=== PATIENT | female | born 1950 | race Caucasian/White ===

== ENCOUNTER 2019-02-22 13:05 | Inpatient (IN) | payer MEDICARE, MEDICAID ==
[~2019-02-22] VITALS: Ht 167.6 cm; Wt 50.5 kg
--- NOTE | 2019-02-22 13:15 | NUR ---
pt BIB ambulance transfer from outlying facility for evaluation of brain tumor. per report pt went to the ER at [place] c/o for >3 days and unable to tget out of bed with exacerbation of chronic neck and back pain. a tumor was found on exam and pt has been transfered here for oncology evaluation. pt is thin and mucous membranes very dry. lips are cracked. pt has a scab to [facility] from a fall that she had at home a few days ago. pt is tearful and asking repeated questions. no family at bedside. pt agitated about "someone robbing her house".
--- NOTE | 2019-02-22 13:25 | NUR ---
MD has been to bedside for eval.
[2019-02-22] MEDS ORDERED: PLEASE ENTER HEIGHT AND WEIGHT MC SCH (13:30)
[2019-02-22] MEDS ORDERED: MORPHINE SULFATE 4 MG/ML, 1ML IVPush PRN (13:30)
[2019-02-22] MEDS ORDERED: SODIUM CHLORIDE FLUSH 10ML SYR IVF ONE (13:30)
[2019-02-22] MEDS ORDERED: ONDANSETRON 2MG/ML, 2ML IVPush ONE (13:30)
[2019-02-22] MEDS ORDERED: PLEASE ENTER ALLERGIES MC SCH (13:30)
[2019-02-22 13:35] LABS: MEAN CORPUSCULAR HEMOGLOBIN 32.6 pg (27.0-34.8); MEAN CORPUSCULAR HGB CONC 33.2 g/dL (32.4-35.8); MEAN CORPUSCULAR VOLUME 97.9 fL (80-100); MEAN PLATELET VOLUME 8.6 fL (7.4-10.4); PLATELET COUNT 443 x10^3/uL (130-400); RED BLOOD COUNT 4.12 x10^6/uL (3.82-5.3); RED CELL DISTRIBUTION WIDTH 17.4 % (9.6-15.2)
--- NOTE | 2019-02-22 13:40 | NUR ---
pt has gotten off of [facility] and is standing at the side of the bed screaming. pt is yelling "where is my phone?" but she is holding it in her hands. attempting to calm pt. pt returned to [facility]. pt tearful and yelling that "they are robbing me! you need to call the police!". pt medicated for pain and anxiety for MRI
[2019-02-22 13:43] LABS: PROTHROMBIN TIME 10.5 Seconds (9.6-11.5)
[2019-02-22] MEDS ORDERED: MORPHINE SULFATE 4 MG/ML, 1ML ONE (13:43)
[2019-02-22] MEDS ORDERED: ONDANSETRON 2MG/ML, 2ML ONE (13:43)
[2019-02-22] MEDS ORDERED: LORazepam 2 MG/ML, 1ML ONE (13:44)
[2019-02-22 13:45] LABS: ALANINE AMINOTRANSFERASE 11 U/L (12-78); ALBUMIN 3.3 g/dL (3.4-5.0); ANION GAP 8 mmol/L (5-15); CALCIUM 8.8 mg/dL (8.5-10.1); CHLORIDE 101 mmol/L (98-107); CREATININE 0.53 mg/dL (0.55-1.02)
[2019-02-22 13:47] LABS: ALKALINE PHOSPHATASE 69 U/L (45-117); BILIRUBIN,TOTAL 0.6 mg/dL (0.2-1.0); TOTAL PROTEIN 7.9 g/dL (6.4-8.2)
[2019-02-22] MEDS ORDERED: LORazepam 2 MG/ML, 1ML IVPush ONE (14:00)
[2019-02-22 14:17] LABS: BASOPHILS # (AUTO) 0.01 x10^3/uL (0-0.1); BASOPHILS % (AUTO) 0 % (0-1); EOSINOPHILS % (AUTO) 0 % (1-7); LYMPHOCYTES # (AUTO) 0.31 x10^3/uL (1-3.4); LYMPHOCYTES % (AUTO) 4 % (22-44); MD SCAN; MONOCYTES # (AUTO) 0.01 x10^3/uL (0.2-0.8); MONOCYTES % (AUTO) 0 % (2-9); NEUTROPHILS # (AUTO) 8.44 x10^3/uL (1.8-6.8); NEUTROPHILS % (AUTO) 96 % (42-75)
--- NOTE | 2019-02-22 14:20 | NUR ---
MD has been to bedside for eval
[2019-02-22] MEDS ORDERED: hydrALAzine 20 MG/ML, 1ML IVPush PRN (14:30)
[2019-02-22] MEDS ORDERED: ONDANSETRON 2MG/ML, 2ML IVPush PRN (14:30)
[2019-02-22] MEDS ORDERED: PROMETHAZINE 25 MG/ML, 1ML IM PRN (14:30)
--- NOTE | 2019-02-22 14:45 | NUR ---
report has been called to recieving RN for admit. [facility] technician contacted to take pt to MRI as room upstairs is not ready
--- NOTE | 2019-02-22 14:46 | NUR ---
pt to MRI via [facility]
--- NOTE | 2019-02-22 14:52 | NUR ---
pt to go to [facility] after MRI. belongings taken to floor by tech
[2019-02-22] MEDS ORDERED: DEXAMETHASONE 4 MG/ML, 1ML IVPush SCH (15:00)
[2019-02-22] MEDS ORDERED: GADOBUTROL 7.5 MMOL/7.5 ML PFS ONE (15:01)
--- NOTE | 2019-02-22 15:03 | NUR ---
pt still in MRI. report to Devendra BO
[2019-02-22] MEDS ORDERED: ALBUTEROL SULFATE 2.5 MG/3 ML NPPB PRN (16:00)
[2019-02-22] MEDS: POTASSIUM CHLORIDE 20 MEQ in LACTATED RINGERS 1,000 ML IV SCH (17:00)
[2019-02-22] MEDS: INSULIN LISPRO 100 UNITS/ML, PEN SQ-INSULIN SCH ×2 (17:46→20:31)
[2019-02-22] MEDS: KETOROLAC 30 MG/1 ML IV PRN (19:14)
[2019-02-22 20:03] VITALS: BP 98/64
[2019-02-22] MEDS: DEXAMETHASONE 4 MG/ML, 1ML IVPush SCH (20:29)
[2019-02-23 00:41] VITALS: BP 119/90
[2019-02-23] MEDS: DEXAMETHASONE 4 MG/ML, 1ML IVPush SCH ×4 (02:59→20:17)
[2019-02-23] MEDS: POTASSIUM CHLORIDE 20 MEQ in LACTATED RINGERS 1,000 ML IV SCH ×2 (02:59→14:36)
[2019-02-23 05:03] LABS: BASOPHILS # (AUTO) 0.02 x10^3/uL (0-0.1); BASOPHILS % (AUTO) 0 % (0-1); EOSINOPHILS % (AUTO) 0 % (1-7); LYMPHOCYTES # (AUTO) 0.68 x10^3/uL (1-3.4); LYMPHOCYTES % (AUTO) 11 % (22-44); MD NO; MEAN CORPUSCULAR HEMOGLOBIN 32.2 pg (27.0-34.8); MEAN CORPUSCULAR HGB CONC 32.8 g/dL (32.4-35.8); MEAN CORPUSCULAR VOLUME 98.2 fL (80-100); MEAN PLATELET VOLUME 8.7 fL (7.4-10.4); MONOCYTES # (AUTO) 0.22 x10^3/uL (0.2-0.8); MONOCYTES % (AUTO) 4 % (2-9); NEUTROPHILS # (AUTO) 5.18 x10^3/uL (1.8-6.8); NEUTROPHILS % (AUTO) 85 % (42-75); PLATELET COUNT 432 x10^3/uL (130-400); RED BLOOD COUNT 4.16 x10^6/uL (3.82-5.3); RED CELL DISTRIBUTION WIDTH 17.5 % (9.6-15.2)
[2019-02-23 05:17] LABS: ALBUMIN 2.9 g/dL (3.4-5.0); ANION GAP 6 mmol/L (5-15); CALCIUM 8.6 mg/dL (8.5-10.1); CHLORIDE 107 mmol/L (98-107)
[2019-02-23 05:20] LABS: CREATININE 0.47 mg/dL (0.55-1.02)
[2019-02-23 05:21] LABS: ALANINE AMINOTRANSFERASE 11 U/L (12-78); ALKALINE PHOSPHATASE 62 U/L (45-117); BILIRUBIN,TOTAL 0.4 mg/dL (0.2-1.0); TOTAL PROTEIN 6.9 g/dL (6.4-8.2)
[2019-02-23 06:54] VITALS: BP 129/73
[2019-02-23] MEDS: INSULIN LISPRO 100 UNITS/ML, PEN SQ-INSULIN SCH ×4 (07:00→20:58)
[2019-02-23] MEDS: MORPHINE SULFATE 4 MG/ML, 1ML IVPush PRN ×4 (09:14→19:40)
[2019-02-23] MEDS: KETOROLAC 30 MG/1 ML IV PRN (11:06)
[2019-02-23] MEDS ORDERED: LORazepam 0.5MG TABLET ONE (11:37)
[2019-02-23] MEDS: LEVETIRACETAM 500 MG in SODIUM CHLORIDE 0.9% 100 ML IV SCH ×2 (11:41→22:31)
[2019-02-23] MEDS: LORazepam 0.5MG TABLET PO PRN ×2 (11:41→17:36)
[2019-02-23 12:52] VITALS: BP 138/96
[2019-02-23] MEDS: BUTALB/APAP/CAFFEINE 50MG/325MG/40MG PO PRN (14:36)
[2019-02-23] MEDS ORDERED: HYDR4TAB PO (15:06)
[2019-02-23] MEDS ORDERED: OMEP20CA14 PO (15:06)
[2019-02-23] MEDS ORDERED: SERT25TA3 PO (15:06)
[2019-02-23] MEDS ORDERED: AMLO5TAB10 PO (15:06)
[2019-02-23] MEDS ORDERED: GABA-826 PO (15:06)
[2019-02-23] MEDS ORDERED: ALBU18HF INH (15:06)
[2019-02-23] MEDS ORDERED: TIOT18CA INH (15:06)
[2019-02-23] MEDS ORDERED: MELO15TA24 PO (15:06)
[2019-02-23] MEDS ORDERED: VARE1TAB21 PO (15:06)
[2019-02-23] MEDS ORDERED: SERT-177 PO (15:06)
[2019-02-23] MEDS ORDERED: CYCL-259 PO (15:06)
[2019-02-23] MEDS ORDERED: BUDE10.2 INH (15:06)
[2019-02-23] MEDS ORDERED: HYDROmorphone 4MG TABLET PO PRN (16:30)
[2019-02-23] MEDS ORDERED: HYDROmorphone 2MG TABLET ONE (16:36)
[2019-02-23] MEDS: OMEPRAZOLE 20 MG CAPSULE.DR PO SCH (20:17)
[2019-02-23] MEDS: CYCLOBENZAPRINE 10 MG TABLET PO SCH (20:17)
[2019-02-23] MEDS: GABAPENTIN 100 MG CAPSULE PO SCH (20:17)
[2019-02-23 20:18] VITALS: BP 139/85
[2019-02-23] MEDS: HYDROmorphone 2MG TABLET PO PRN (20:57)
[2019-02-23] MEDS ORDERED: VARENICLINE 1MG TABLET PO SCH (21:00)
[2019-02-23] MEDS ORDERED: AMLODIPINE 5 MG TABLET PO SCH (21:00)
[2019-02-23] MEDS: BUDESONIDE 0.5 MG/2 ML INHA NPPB SCH (21:00)
[2019-02-23 22:19] VITALS: BP 131/80
[2019-02-23] MEDS ORDERED: TEMAZEPAM 15 MG CAPSULE PO PRN (22:30)
[2019-02-24] MEDS: POTASSIUM CHLORIDE 20 MEQ in LACTATED RINGERS 1,000 ML IV SCH (00:45)
[2019-02-24] MEDS: MORPHINE SULFATE 4 MG/ML, 1ML IVPush PRN ×3 (00:50→19:24)
[2019-02-24] MEDS: DEXAMETHASONE 4 MG/ML, 1ML IVPush SCH ×4 (03:00→22:14)
[2019-02-24 03:30] VITALS: BP 134/84
[2019-02-24] MEDS: HYDROmorphone 2MG TABLET PO PRN ×2 (04:11→16:27)
[2019-02-24 04:24] LABS: BASOPHILS % (AUTO) 0 % (0-1); EOSINOPHILS % (AUTO) 0 % (1-7); LYMPHOCYTES # (AUTO) 0.56 x10^3/uL (1-3.4); LYMPHOCYTES % (AUTO) 6 % (22-44); MD NO; MEAN CORPUSCULAR HEMOGLOBIN 31.1 pg (27.0-34.8); MEAN CORPUSCULAR HGB CONC 32.2 g/dL (32.4-35.8); MEAN CORPUSCULAR VOLUME 96.7 fL (80-100); MEAN PLATELET VOLUME 8.4 fL (7.4-10.4); MONOCYTES # (AUTO) 0.33 x10^3/uL (0.2-0.8); MONOCYTES % (AUTO) 4 % (2-9); NEUTROPHILS # (AUTO) 8.37 x10^3/uL (1.8-6.8); NEUTROPHILS % (AUTO) 90 % (42-75); PLATELET COUNT 485 x10^3/uL (130-400); RED BLOOD COUNT 4.31 x10^6/uL (3.82-5.3); RED CELL DISTRIBUTION WIDTH 17.5 % (9.6-15.2)
[2019-02-24 04:30] LABS: ALANINE AMINOTRANSFERASE 13 U/L (12-78); ALBUMIN 2.9 g/dL (3.4-5.0); ANION GAP 5 mmol/L (5-15); CALCIUM 8.8 mg/dL (8.5-10.1); CHLORIDE 105 mmol/L (98-107); CREATININE 0.51 mg/dL (0.55-1.02)
[2019-02-24 04:33] LABS: ALKALINE PHOSPHATASE 60 U/L (45-117); BILIRUBIN,TOTAL 0.3 mg/dL (0.2-1.0); TOTAL PROTEIN 6.9 g/dL (6.4-8.2)
[2019-02-24 06:45] VITALS: BP 107/54
[2019-02-24] MEDS ORDERED: TRAZODONE 50MG TABLET PO PRN (07:30)
[2019-02-24] MEDS ORDERED: TEMPLATE NON-FORMULARY MED. (Budesonide/Formoterol Fumarate (Symbicort 160-4.5 Mcg Inhaler INH SCH (09:00)
[2019-02-24] MEDS ORDERED: ALBUTEROL SULFATE 2.5 MG/3 ML NPPB PRN (09:00)
[2019-02-24] MEDS ORDERED: AMLODIPINE 5 MG TABLET PO SCH (09:00)
[2019-02-24] MEDS ORDERED: MELOXICAM 15 MG TABLET PO SCH (09:00)
[2019-02-24] MEDS: INSULIN LISPRO 100 UNITS/ML, PEN SQ-INSULIN SCH ×4 (09:17→22:43)
[2019-02-24] MEDS: CYCLOBENZAPRINE 10 MG TABLET PO SCH ×2 (09:18→22:14)
[2019-02-24] MEDS: OMEPRAZOLE 20 MG CAPSULE.DR PO SCH ×2 (09:18→22:14)
[2019-02-24] MEDS: GABAPENTIN 100 MG CAPSULE PO SCH ×3 (09:19→22:14)
[2019-02-24] MEDS: SERTRALINE 50MG TABLET PO SCH (09:19)
[2019-02-24] MEDS: BUDESONIDE 0.5 MG/2 ML INHA NPPB SCH ×2 (10:00→20:23)
[2019-02-24] MEDS: IPRATROPIUM 0.5 MG/2.5 ML INHA NPPB SCH ×3 (10:00→20:22)
[2019-02-24] MEDS: LEVETIRACETAM 500 MG in SODIUM CHLORIDE 0.9% 100 ML IV SCH (11:59)
[2019-02-24] MEDS: LORazepam 0.5MG TABLET PO PRN (12:29)
[2019-02-24 14:28] VITALS: BP 138/88
[2019-02-24] MEDS: LORazepam 1MG TABLET PO PRN ×2 (16:48→22:42)
[2019-02-24] MEDS: BUTALB/APAP/CAFFEINE 50MG/325MG/40MG PO PRN (17:35)
[2019-02-24 20:03] VITALS: BP 150/80
[2019-02-25] MEDS: LEVETIRACETAM 500 MG in SODIUM CHLORIDE 0.9% 100 ML IV SCH ×3 (01:29→23:27)
[2019-02-25 01:56] VITALS: BP 150/90
[2019-02-25] MEDS: IPRATROPIUM 0.5 MG/2.5 ML INHA NPPB SCH ×3 (02:30→21:00)
[2019-02-25] MEDS: DEXAMETHASONE 4 MG/ML, 1ML IVPush SCH ×4 (03:52→20:40)
[2019-02-25 06:37] VITALS: BP 139/77
[2019-02-25] MEDS: INSULIN LISPRO 100 UNITS/ML, PEN SQ-INSULIN SCH ×4 (08:00→22:51)
[2019-02-25] MEDS: BUDESONIDE 0.5 MG/2 ML INHA NPPB SCH ×2 (10:00→21:00)
[2019-02-25] MEDS ORDERED: LIDOCAINE-MPF 1%, 5ML ONE (12:03)
[2019-02-25] MEDS ORDERED: FENTANYL PF 100 MCG/2ML ONE ×2 (12:30)
[2019-02-25] MEDS ORDERED: NALOXONE 1 MG/ML, 2ML ONE (12:31)
[2019-02-25] MEDS ORDERED: MIDAZOLAM 1 MG/ML, 5ML ONE (12:31)
[2019-02-25] MEDS ORDERED: FLUMAZENIL 0.1 MG/1 ML, 5ML ONE (12:31)
[2019-02-25 12:40] VITALS: BP 147/89
[2019-02-25] MEDS: MORPHINE SULFATE 4 MG/ML, 1ML IVPush PRN ×3 (14:09→23:17)
[2019-02-25 14:45] LABS: ANION GAP 6 mmol/L (5-15); CALCIUM 8.8 mg/dL (8.5-10.1); CHLORIDE 103 mmol/L (98-107)
[2019-02-25 14:47] LABS: CREATININE 0.48 mg/dL (0.55-1.02)
[2019-02-25] MEDS: SERTRALINE 50MG TABLET PO SCH (15:58)
[2019-02-25] MEDS: AMLODIPINE 5 MG TABLET PO SCH ×2 (15:59→20:11)
[2019-02-25] MEDS: HYDROmorphone 2MG TABLET PO PRN ×2 (15:59→23:17)
[2019-02-25] MEDS: CYCLOBENZAPRINE 10 MG TABLET PO SCH ×2 (15:59→20:11)
[2019-02-25] MEDS: GABAPENTIN 100 MG CAPSULE PO SCH ×3 (16:00→20:11)
[2019-02-25] MEDS: OMEPRAZOLE 20 MG CAPSULE.DR PO SCH ×2 (16:00→20:11)
[2019-02-25 20:05] VITALS: BP 134/85
[2019-02-25] MEDS: BUTALB/APAP/CAFFEINE 50MG/325MG/40MG PO PRN (20:40)
[2019-02-25] MEDS: LORazepam 1MG TABLET PO PRN (20:40)
[2019-02-26] MEDS: IPRATROPIUM 0.5 MG/2.5 ML INHA NPPB SCH ×4 (02:30→20:40)
[2019-02-26] MEDS: DEXAMETHASONE 4 MG/ML, 1ML IVPush SCH ×3 (03:28→16:54)
[2019-02-26 03:57] VITALS: BP 124/82
[2019-02-26] MEDS: INSULIN LISPRO 100 UNITS/ML, PEN SQ-INSULIN SCH ×3 (07:00→18:16)
[2019-02-26] MEDS: BUDESONIDE 0.5 MG/2 ML INHA NPPB SCH ×2 (07:14→20:40)
[2019-02-26 07:55] VITALS: BP 142/90
[2019-02-26] MEDS: MORPHINE SULFATE 4 MG/ML, 1ML IVPush PRN ×3 (11:20→19:54)
[2019-02-26] MEDS: CYCLOBENZAPRINE 10 MG TABLET PO SCH ×2 (11:27→19:37)
[2019-02-26] MEDS: GABAPENTIN 100 MG CAPSULE PO SCH ×2 (11:27→16:54)
[2019-02-26] MEDS: OMEPRAZOLE 20 MG CAPSULE.DR PO SCH ×2 (11:27→19:37)
[2019-02-26] MEDS: AMLODIPINE 5 MG TABLET PO SCH ×2 (11:27→19:37)
[2019-02-26] MEDS: SERTRALINE 50MG TABLET PO SCH (11:27)
[2019-02-26] MEDS: LEVETIRACETAM 500 MG in SODIUM CHLORIDE 0.9% 100 ML IV SCH (11:28)
[2019-02-26 12:34] VITALS: BP 138/84
[2019-02-26] MEDS: BUTALB/APAP/CAFFEINE 50MG/325MG/40MG PO PRN ×2 (13:08→18:15)
[2019-02-26 18:36] VITALS: BP 146/84
[2019-02-26] MEDS: DOCUSATE 100 MG CAPSULE PO SCH ×2 (18:54→19:37)
[2019-02-26] MEDS: LORazepam 1MG TABLET PO PRN (18:58)
[2019-02-26] MEDS: HYDROmorphone 2MG TABLET PO PRN (19:37)
[2019-02-27 00:13] VITALS: BP 147/92
[2019-02-27] MEDS: LEVETIRACETAM 500 MG in SODIUM CHLORIDE 0.9% 100 ML IV SCH ×3 (00:14→23:00)
[2019-02-27] MEDS: DEXAMETHASONE 4 MG/ML, 1ML IVPush SCH ×4 (00:14→17:31)
[2019-02-27] MEDS: GABAPENTIN 100 MG CAPSULE PO SCH ×4 (00:14→21:34)
[2019-02-27] MEDS: MORPHINE SULFATE 4 MG/ML, 1ML IVPush PRN ×4 (00:14→19:33)
[2019-02-27] MEDS: INSULIN LISPRO 100 UNITS/ML, PEN SQ-INSULIN SCH ×5 (00:36→21:00)
[2019-02-27] MEDS: IPRATROPIUM 0.5 MG/2.5 ML INHA NPPB SCH ×4 (02:54→22:12)
[2019-02-27] MEDS: BUDESONIDE 0.5 MG/2 ML INHA NPPB SCH ×2 (07:35→22:12)
[2019-02-27 07:40] VITALS: BP 121/82
[2019-02-27] MEDS: MAGNESIUM HYDROXIDE 8%, 30ML UDC PO PRN (09:57)
[2019-02-27] MEDS: CYCLOBENZAPRINE 10 MG TABLET PO SCH ×2 (09:58→21:35)
[2019-02-27] MEDS: SERTRALINE 50MG TABLET PO SCH (09:58)
[2019-02-27] MEDS: DOCUSATE 100 MG CAPSULE PO SCH ×2 (09:58→21:34)
[2019-02-27] MEDS: AMLODIPINE 5 MG TABLET PO SCH ×2 (09:58→21:34)
[2019-02-27] MEDS: OMEPRAZOLE 20 MG CAPSULE.DR PO SCH ×2 (09:58→21:34)
[2019-02-27] MEDS ORDERED: MAGNESIUM CITRATE 300ML ORAL SOL PO PRN (10:30)
[2019-02-27] MEDS: HEPARIN 5,000 UNITS/ML, 1ML SQ SCH ×2 (11:18→17:31)
[2019-02-27] MEDS ORDERED: ALBUTEROL/IPRATROPIUM 2.5MG/0.5MG, 3 ML ONE (12:24)
[2019-02-27 13:15] VITALS: BP 131/84
[2019-02-27] MEDS: HYDROmorphone 2MG TABLET PO PRN ×2 (17:32→21:39)
[2019-02-27 19:20] VITALS: BP 144/88
[2019-02-27] MEDS: LORazepam 1MG TABLET PO PRN (21:34)
[2019-02-28] MEDS: DEXAMETHASONE 4 MG/ML, 1ML IVPush SCH ×5 (00:32→23:55)
[2019-02-28] MEDS: MORPHINE SULFATE 4 MG/ML, 1ML IVPush PRN ×5 (01:28→20:13)
[2019-02-28] MEDS: IPRATROPIUM 0.5 MG/2.5 ML INHA NPPB SCH ×4 (02:44→18:57)
[2019-02-28] MEDS: HEPARIN 5,000 UNITS/ML, 1ML SQ SCH ×2 (03:12→10:30)
[2019-02-28 03:59] VITALS: BP 148/86
[2019-02-28] MEDS: HYDROmorphone 2MG TABLET PO PRN ×2 (04:40→13:04)
[2019-02-28] MEDS: INSULIN LISPRO 100 UNITS/ML, PEN SQ-INSULIN SCH ×4 (07:00→21:44)
[2019-02-28] MEDS: BUDESONIDE 0.5 MG/2 ML INHA NPPB SCH ×2 (08:10→18:57)
[2019-02-28] MEDS: CYCLOBENZAPRINE 10 MG TABLET PO SCH ×2 (09:03→21:00)
[2019-02-28] MEDS: OMEPRAZOLE 20 MG CAPSULE.DR PO SCH ×2 (09:03→21:00)
[2019-02-28] MEDS: DOCUSATE 100 MG CAPSULE PO SCH ×2 (09:03→21:00)
[2019-02-28] MEDS: GABAPENTIN 100 MG CAPSULE PO SCH ×3 (09:03→21:00)
[2019-02-28] MEDS: AMLODIPINE 5 MG TABLET PO SCH ×2 (09:03→21:00)
[2019-02-28] MEDS: SERTRALINE 50MG TABLET PO SCH (09:03)
[2019-02-28] MEDS: BUTALB/APAP/CAFFEINE 50MG/325MG/40MG PO PRN ×2 (10:09→16:07)
[2019-02-28] MEDS: MAGNESIUM HYDROXIDE 8%, 30ML UDC PO PRN (10:09)
[2019-02-28 10:20] VITALS: BP 135/90
[2019-02-28] MEDS: LEVETIRACETAM 500 MG in SODIUM CHLORIDE 0.9% 100 ML IV SCH ×2 (11:25→23:27)
[2019-02-28 13:52] VITALS: BP 149/93
[2019-02-28] MEDS ORDERED: HYDROXYZINE PAMOATE 50MG CAP PO PRN (17:30)
[2019-02-28] MEDS ORDERED: LORazepam 0.5MG TABLET PO PRN (17:30)
[2019-02-28 21:30] VITALS: BP 179/93
[2019-02-28 21:58] VITALS: BP 183/93
[2019-02-28] MEDS ORDERED: ONDANSETRON 2MG/ML, 2ML IVPush PRN (22:31)
[2019-02-28] MEDS: LORazepam 2 MG/ML, 1ML IVPush PRN (23:27)
[2019-03-01] VITALS (12 sets, daily range): BP systolic 142–200; BP diastolic 85–106
[2019-03-01] MEDS: MORPHINE SULFATE 4 MG/ML, 1ML IVPush PRN ×3 (00:06→18:05)
[2019-03-01] MEDS: LABETALOL 5MG/ML, 20ML IVPush PRN ×3 (00:16→17:15)
[2019-03-01] MEDS: hydrALAzine 20 MG/ML, 1ML IV PRN ×3 (00:56→18:15)
[2019-03-01] MEDS: AMLODIPINE 5 MG TABLET PO SCH ×4 (00:59→21:00)
[2019-03-01] MEDS ORDERED: ENALAPRILAT 1.25 MG/ML, 2ML IV ONE (02:00)
[2019-03-01] MEDS: IPRATROPIUM 0.5 MG/2.5 ML INHA NPPB SCH ×3 (02:41→14:35)
[2019-03-01] MEDS: HYDROmorphone 2MG TABLET PO PRN (02:50)
[2019-03-01] MEDS: DEXAMETHASONE 4 MG/ML, 1ML IVPush SCH ×2 (05:55→12:12)
[2019-03-01] MEDS: BUDESONIDE 0.5 MG/2 ML INHA NPPB SCH ×2 (06:27→22:10)
[2019-03-01] MEDS: METOPROLOL TARTRATE 50 MG TABLET PO SCH ×3 (07:30→18:00)
[2019-03-01] MEDS: INSULIN LISPRO 100 UNITS/ML, PEN SQ-INSULIN SCH ×4 (08:33→21:00)
[2019-03-01] MEDS: CYCLOBENZAPRINE 10 MG TABLET PO SCH ×3 (08:55→21:00)
[2019-03-01] MEDS: HYDROCHLOROTHIAZIDE 25 MG TABLET PO SCH ×2 (08:55→09:00)
[2019-03-01] MEDS: OMEPRAZOLE 20 MG CAPSULE.DR PO SCH ×3 (08:55→21:00)
[2019-03-01] MEDS: ESCITALOPRAM 10MG TABLET PO SCH ×2 (08:55→09:00)
[2019-03-01] MEDS: DOCUSATE 100 MG CAPSULE PO SCH ×3 (08:55→21:00)
[2019-03-01] MEDS: GABAPENTIN 100 MG CAPSULE PO SCH ×4 (08:56→21:00)
[2019-03-01] MEDS: LORazepam 2 MG/ML, 1ML IVPush PRN (09:14)
[2019-03-01] MEDS ORDERED: ENALAPRILAT 1.25 MG/ML, 2ML IV PRN (11:00)
[2019-03-01] MEDS ORDERED: LABETALOL 5MG/ML, 20ML IVPush ONE (11:00)
[2019-03-01] MEDS: LEVETIRACETAM 500 MG in SODIUM CHLORIDE 0.9% 100 ML IV SCH ×2 (12:13→23:58)
[2019-03-01 12:54] LABS: MEAN CORPUSCULAR HEMOGLOBIN 31.9 pg (27.0-34.8); MEAN CORPUSCULAR VOLUME 96.7 fL (80-100); MEAN PLATELET VOLUME 8.4 fL (7.4-10.4); PLATELET COUNT 513 x10^3/uL (130-400); RED BLOOD COUNT 5.11 x10^6/uL (3.82-5.3); RED CELL DISTRIBUTION WIDTH 17.6 % (9.6-15.2)
[2019-03-01 13:03] LABS: ALANINE AMINOTRANSFERASE 18 U/L (12-78); ALBUMIN 3.2 g/dL (3.4-5.0); ANION GAP 11 mmol/L (5-15); CALCIUM 9.1 mg/dL (8.5-10.1); CREATININE 0.49 mg/dL (0.55-1.02)
[2019-03-01 13:05] LABS: ALKALINE PHOSPHATASE 66 U/L (45-117); BILIRUBIN,TOTAL 0.5 mg/dL (0.2-1.0); TOTAL PROTEIN 8.2 g/dL (6.4-8.2)
[2019-03-01 13:16] LABS: MD YES
[2019-03-01 13:17] LABS: CHLORIDE 90 mmol/L (98-107)
[2019-03-01 13:19] LABS: <PLATELET ESTIMATE> INCREASED; ANISOCYTOSIS 1+; LARGE PLATELETS 1+; LYMPH#(MANUAL) 0.53 x10^3/uL (1-3.4); LYMPHS% (MANUAL) 2 % (22-44); MONOS#(MANUAL) 2.39 x10^3/uL (0.3-2.7); MONOS% (MANUAL) 9 % (2-9); SEG#(MANUAL) 23.59 x10^3/uL (1.8-6.8); SEGS% (MANUAL) 89 % (42-75)
[2019-03-01] MEDS ORDERED: OMNIPAQUE 350 MG/ML, 75ML BOTTLE ONE (14:12)
[2019-03-01] MEDS: SODIUM CHLORIDE 0.9% 1,000 ML IV SCH ×3 (14:29→23:59)
[2019-03-01] MEDS ORDERED: DEXAMETHASONE 1 MG TABLET PO SCH (16:00)
[2019-03-01] MEDS ORDERED: DEXAMETHASONE 4 MG/ML, 1ML IVPush SCH (18:00)
[2019-03-01 18:50] LABS: ANION GAP 12 mmol/L (5-15); CALCIUM 9.4 mg/dL (8.5-10.1); CHLORIDE 92 mmol/L (98-107); CREATININE 0.57 mg/dL (0.55-1.02)
[2019-03-01] MEDS ORDERED: NALOXONE 0.4 MG/ML, 1ML IVPush ONE (19:00)
[2019-03-01] MEDS ORDERED: MANNITOL PMX 20% 500 ML ONE (19:53)
[2019-03-01] MEDS ORDERED: FUROSEMIDE 20 MG/2 ML ONE (19:53)
[2019-03-01] MEDS ORDERED: CEFUROXIME 1.5 GM ONE (19:56)
[2019-03-01] MEDS ORDERED: FENTANYL PF 250 MCG/5ML ONE (19:58)
[2019-03-01] MEDS ORDERED: ROCURONIUM 10MG/ML,5ML ONE (20:10)
[2019-03-01] MEDS ORDERED: LIDOCAINE-MPF 2% ,5ML ONE (20:10)
[2019-03-01] MEDS ORDERED: PROPOFOL 10 MG/ML, 20ML ONE (20:10)
[2019-03-01] MEDS ORDERED: PHENYLEPHRINE 10 MG/ML ONE (20:10)
[2019-03-01] MEDS ORDERED: BUPIVACAINE/PF-EPI 0.5% 1:200K ONE (20:30)
[2019-03-01] MEDS ORDERED: BACITRACIN 50,000 UNIT ONE (20:31)
[2019-03-01] MEDS ORDERED: VANCOMYCIN 1,000 MG ONE (21:25)
[2019-03-01] MEDS: ALBUTEROL/IPRATROPIUM 2.5MG/0.5MG, 3 ML INLINE SCH (22:10)
[2019-03-01] MEDS ORDERED: VANCOMYCIN PER PHARMACY MC PRN ×2 (22:30)
[2019-03-01] MEDS ORDERED: PHARMACOKINETIC CONSULTATION MC ONE ×2 (22:30→23:30)
[2019-03-01] MEDS ORDERED: CEFTRIAXONE PMX 1GM/50ML 50 ML IV SCH (22:30)
[2019-03-01] MEDS ORDERED: PHARMACOKINETIC MONITORING MC PRN ×2 (22:30→23:30)
[2019-03-01] MEDS ORDERED: METRONIDAZOLE PMX 500MG/100ML 100 ML IV SCH (22:30)
[2019-03-01] MEDS ORDERED: FENTANYL PF 100 MCG/2ML ONE (22:55)
[2019-03-01] MEDS ORDERED: MIDAZOLAM 1 MG/ML, 5ML ONE (22:55)
[2019-03-01] MEDS ORDERED: PROPOFOL 100 ML IV ONE (22:55)
[2019-03-01] MEDS ORDERED: VANCOMYCIN 1,300 MG in SODIUM CHLORIDE 0.9% 250 ML IV ONE (23:00)
[2019-03-01] MEDS ORDERED: FENTANYL PF 100 MCG/2ML IVPush PRN ×2 (23:00→23:30)
[2019-03-01] MEDS ORDERED: VANCOMYCIN PMX 1GM/200ML 200 ML IV SCH (23:00)
[2019-03-01] MEDS ORDERED: MIDAZOLAM 1 MG/ML, 5ML IVPush ONE (23:00)
[2019-03-01] MEDS: CEFTRIAXONE PMX 2GM/50ML 50 ML IVPB SCH (23:12)
[2019-03-01] MEDS ORDERED: GLUCAGON 1 MG IM PRN (23:30)
[2019-03-01] MEDS ORDERED: DEXTROSE 50%, 50ML SYRINGE IVPush PRN (23:30)
[2019-03-01] MEDS ORDERED: DEXTROSE 4 GM TAB.CHEW PO PRN (23:30)
[2019-03-01] MEDS ORDERED: LACTULOSE 20 GM/30 ML UDC NG PRN (23:30)
[2019-03-01] MEDS ORDERED: LIDOCAINE-MPF 1%, 2ML ENDO PRN (23:30)
[2019-03-01] MEDS ORDERED: PHARMACY MAY ADJ FOR RENAL FX MC SCH (23:30)
[2019-03-01] MEDS ORDERED: BISACODYL 10 MG SUPP PR PRN (23:30)
[2019-03-01] MEDS ORDERED: SENNA/DOCUSATE TABLET NG PRN (23:30)
[2019-03-01 23:35] LABS: ANION GAP 11 mmol/L (5-15); CALCIUM 9.2 mg/dL (8.5-10.1); CHLORIDE 94 mmol/L (98-107); CREATININE 0.62 mg/dL (0.55-1.02)
[2019-03-01 23:57] LABS: CULTURE INDICATED? NO; MICROSCOPIC AUTO
[2019-03-02 00:01] LABS: MEAN CORPUSCULAR HEMOGLOBIN 30.9 pg (27.0-34.8); MEAN CORPUSCULAR HGB CONC 32.2 g/dL (32.4-35.8); MEAN CORPUSCULAR VOLUME 95.9 fL (80-100); MEAN PLATELET VOLUME 8.4 fL (7.4-10.4); PLATELET COUNT 469 x10^3/uL (130-400); RED BLOOD COUNT 5.06 x10^6/uL (3.82-5.3)
[2019-03-02] MEDS: SODIUM CHLORIDE 3% 500 ML IV SCH ×2 (00:09→19:00)
[2019-03-02 00:10] LABS: INTERNATIONAL NORMALIZED RATIO 1.09 (0.93-1.1); PROTHROMBIN TIME 11.4 Seconds (9.6-11.5)
[2019-03-02 00:15] LABS: TROPONIN I 0.295 ng/mL (0.000-0.045)
[2019-03-02 00:16] LABS: ANION GAP 12 mmol/L (5-15); CALCIUM 8.7 mg/dL (8.5-10.1); CHLORIDE 95 mmol/L (98-107); CREATININE 0.51 mg/dL (0.55-1.02); TRIGLYCERIDES 71 mg/dL (50-200)
[2019-03-02] MEDS ORDERED: MANNITOL 0.25 GM/ML, 50ML IVPush ONE ×2 (02:00→15:00)
[2019-03-02] MEDS: ALBUTEROL/IPRATROPIUM 2.5MG/0.5MG, 3 ML INLINE SCH ×6 (02:09→22:03)
[2019-03-02] MEDS: DEXAMETHASONE 4 MG/ML, 1ML IVPush SCH ×2 (02:27→11:23)
[2019-03-02] MEDS: INSULIN LISPRO 100 UNITS/ML, PEN SQ-INSULIN SCH ×4 (03:00→20:14)
[2019-03-02] MEDS ORDERED: PHENYLEPHRINE 20 MG in SODIUM CHLORIDE 0.9% 248 ML IV PRN (03:30)
[2019-03-02 04:35] LABS: MEAN CORPUSCULAR HEMOGLOBIN 31.7 pg (27.0-34.8); MEAN CORPUSCULAR HGB CONC 33.1 g/dL (32.4-35.8); MEAN CORPUSCULAR VOLUME 95.9 fL (80-100); MEAN PLATELET VOLUME 8.7 fL (7.4-10.4); PLATELET COUNT 467 x10^3/uL (130-400); RED BLOOD COUNT 4.83 x10^6/uL (3.82-5.3); RED CELL DISTRIBUTION WIDTH 17.8 % (9.6-15.2)
[2019-03-02 04:49] LABS: ALBUMIN 2.4 g/dL (3.4-5.0); ANION GAP 13 mmol/L (5-15); CALCIUM 8.9 mg/dL (8.5-10.1); CHLORIDE 98 mmol/L (98-107)
[2019-03-02 04:51] VITALS: BP 140/82
[2019-03-02 04:54] LABS: ALANINE AMINOTRANSFERASE 13 U/L (12-78); ALKALINE PHOSPHATASE 62 U/L (45-117); BILIRUBIN,TOTAL 0.4 mg/dL (0.2-1.0); CREATININE 0.58 mg/dL (0.55-1.02); TOTAL PROTEIN 7.4 g/dL (6.4-8.2); TROPONIN I 0.212 ng/mL (0.000-0.045)
[2019-03-02 04:59] LABS: MD YES
[2019-03-02 05:01] LABS: ANISOCYTOSIS 1+; BAND#(MANUAL) 1.08 x10^3/uL; BANDS%(MANUAL) 4 % (0-7); LYMPH#(MANUAL) 0.81 x10^3/uL (1-3.4); LYMPHS% (MANUAL) 3 % (22-44); MONOS#(MANUAL) 0.54 x10^3/uL (0.3-2.7); MONOS% (MANUAL) 2 % (2-9); SEG#(MANUAL) 24.48 x10^3/uL (1.8-6.8); SEGS% (MANUAL) 91 % (42-75); TEAR DROPS 1+
[2019-03-02 05:02] LABS: <PLATELET ESTIMATE> INCREASED; <PLT MORPHOLOGY> NORMAL PLT MORPH
[2019-03-02] MEDS: VANCOMYCIN PMX 1GM/200ML 200 ML IV SCH ×3 (05:03→22:08)
[2019-03-02] MEDS: METOPROLOL TARTRATE 50 MG TABLET PO SCH (06:00)
[2019-03-02] MEDS: METRONIDAZOLE PMX 500MG/100ML 100 ML IV SCH ×3 (06:12→17:53)
[2019-03-02] MEDS ORDERED: SODIUM CHLORIDE IV ONE ×2 (06:30→11:30)
[2019-03-02] MEDS ORDERED: INSULIN LISPRO 100 UNITS/ML, PEN SQ-INSULIN SCH (07:00)
[2019-03-02] MEDS ORDERED: POTASSIUM CHLORIDE 10% 40 MEQ/30 ML UDC PO ONE (07:00)
[2019-03-02] MEDS ORDERED: VECURONIUM 10 MG ONE (07:09)
[2019-03-02] MEDS ORDERED: VECURONIUM 10 MG IVPush ONE (07:30)
[2019-03-02] MEDS ORDERED: VECURONIUM 50 MG in SODIUM CHLORIDE 0.9% 250 ML IV PRN (07:30)
[2019-03-02] MEDS: ESCITALOPRAM 10MG TABLET PO SCH (09:00)
[2019-03-02] MEDS: BUDESONIDE 0.5 MG/2 ML INHA NPPB SCH ×2 (09:00→18:07)
[2019-03-02] MEDS ORDERED: CEFTRIAXONE 1,000 MG IV SCH (09:00)
[2019-03-02] MEDS: AMLODIPINE 5 MG TABLET PO SCH (09:00)
[2019-03-02] MEDS: DOCUSATE 100 MG CAPSULE PO SCH (09:00)
[2019-03-02] MEDS: GABAPENTIN 100 MG CAPSULE PO SCH (09:00)
[2019-03-02] MEDS: SODIUM CHLORIDE FLUSH 10ML SYR IVF SCH ×2 (09:00→20:21)
[2019-03-02] MEDS: FENTANYL PF 2,500 MCG in SODIUM CHLORIDE 0.9% 200 ML IV PRN (09:38)
[2019-03-02] MEDS: VECURONIUM 50 MG in SODIUM CHLORIDE 0.9% 250 ML IV PRN ×2 (09:38→21:11)
[2019-03-02] MEDS ORDERED: POTASSIUM CHLORIDE 40 MEQ in SODIUM CHLORIDE 0.9% 100 ML IV ONE (10:30)
[2019-03-02] MEDS ORDERED: ACETAMINOPHEN 325 MG TABLET ONE (11:15)
[2019-03-02] MEDS: PANTOPRAZOLE 40 MG IV IVPush SCH ×2 (11:23→20:20)
[2019-03-02] MEDS: CEFTRIAXONE PMX 2GM/50ML 50 ML IVPB SCH ×2 (11:24→23:14)
[2019-03-02] MEDS: LEVETIRACETAM 500 MG in SODIUM CHLORIDE 0.9% 100 ML IV SCH ×2 (12:56→23:59)
[2019-03-02] MEDS: PROPOFOL 100 ML IV PRN (13:35)
[2019-03-02 20:09] LABS: MEAN CORPUSCULAR HEMOGLOBIN 32.2 pg (27.0-34.8); MEAN CORPUSCULAR HGB CONC 32.7 g/dL (32.4-35.8); MEAN CORPUSCULAR VOLUME 98.5 fL (80-100); PLATELET COUNT 435 x10^3/uL (130-400); RED BLOOD COUNT 4.35 x10^6/uL (3.82-5.3); RED CELL DISTRIBUTION WIDTH 18.1 % (9.6-15.2)
[2019-03-02 20:19] LABS: ANION GAP 6 mmol/L (5-15); CALCIUM 8.6 mg/dL (8.5-10.1)
[2019-03-02 20:21] LABS: VANCOMYCIN,TROUGH 20.6 mcg/mL (5.0-10.0)
[2019-03-02 20:23] LABS: CHLORIDE 118 mmol/L (98-107)
[2019-03-02] MEDS ORDERED: DEXAMETHASONE 4 MG/ML, 1ML IVPush SCH (21:00)
[2019-03-03] MEDS: METRONIDAZOLE PMX 500MG/100ML 100 ML IV SCH ×4 (00:45→18:22)
[2019-03-03] MEDS: ALBUTEROL/IPRATROPIUM 2.5MG/0.5MG, 3 ML INLINE SCH ×6 (02:00→22:17)
[2019-03-03] MEDS: INSULIN LISPRO 100 UNITS/ML, PEN SQ-INSULIN SCH ×4 (03:00→20:37)
[2019-03-03] MEDS: SODIUM CHLORIDE 0.9% 1,000 ML IV SCH (03:40)
[2019-03-03 04:54] LABS: MEAN CORPUSCULAR HEMOGLOBIN 31.7 pg (27.0-34.8); MEAN CORPUSCULAR HGB CONC 32.3 g/dL (32.4-35.8); MEAN CORPUSCULAR VOLUME 98.1 fL (80-100); MEAN PLATELET VOLUME 8.7 fL (7.4-10.4); PLATELET COUNT 388 x10^3/uL (130-400); RED BLOOD COUNT 3.97 x10^6/uL (3.82-5.3); RED CELL DISTRIBUTION WIDTH 18.8 % (9.6-15.2)
[2019-03-03 05:12] LABS: ANION GAP 6 mmol/L (5-15); CALCIUM 8.5 mg/dL (8.5-10.1); CHLORIDE 117 mmol/L (98-107); CREATININE 0.36 mg/dL (0.55-1.02)
[2019-03-03] MEDS: PROPOFOL 100 ML IV PRN ×3 (05:36→15:27)
[2019-03-03 05:58] LABS: BASOPHILS # (AUTO) 0.01 x10^3/uL (0-0.1); BASOPHILS % (AUTO) 0 % (0-1); EOSINOPHILS # (AUTO) 0.01 x10^3/uL (0-0.4); EOSINOPHILS % (AUTO) 0 % (1-7); LYMPHOCYTES # (AUTO) 0.46 x10^3/uL (1-3.4); LYMPHOCYTES % (AUTO) 2 % (22-44); MD SCAN; MONOCYTES # (AUTO) 0.22 x10^3/uL (0.2-0.8); MONOCYTES % (AUTO) 1 % (2-9); NEUTROPHILS # (AUTO) 20.34 x10^3/uL (1.8-6.8); NEUTROPHILS % (AUTO) 97 % (42-75)
[2019-03-03] MEDS: BUDESONIDE 0.5 MG/2 ML INHA NPPB SCH ×2 (06:17→18:15)
[2019-03-03] MEDS: VANCOMYCIN PMX 1GM/200ML 200 ML IV SCH (06:24)
[2019-03-03] MEDS ORDERED: POTASSIUM CHLORIDE 40 MEQ in SODIUM CHLORIDE 0.9% 100 ML IV ONE (06:30)
[2019-03-03] MEDS ORDERED: SODIUM CHLORIDE IV PRN ×2 (09:00→15:00)
[2019-03-03] MEDS: PANTOPRAZOLE 40 MG IV IVPush SCH ×2 (09:27→20:37)
[2019-03-03] MEDS: SODIUM CHLORIDE FLUSH 10ML SYR IVF SCH ×2 (09:28→20:37)
[2019-03-03 11:04] LABS: ANION GAP 5 mmol/L (5-15); CALCIUM 8.6 mg/dL (8.5-10.1); CHLORIDE 117 mmol/L (98-107); CREATININE 0.39 mg/dL (0.55-1.02)
[2019-03-03] MEDS: CEFTRIAXONE PMX 2GM/50ML 50 ML IVPB SCH ×2 (11:36→23:42)
[2019-03-03] MEDS: LEVETIRACETAM 500 MG in SODIUM CHLORIDE 0.9% 100 ML IV SCH ×2 (11:48→23:41)
[2019-03-03] MEDS ORDERED: VANCOMYCIN 1,250 MG in SODIUM CHLORIDE 0.9% 250 ML IV SCH (14:00)
[2019-03-03] MEDS: VANCOMYCIN 1,250 MG in SODIUM CHLORIDE 0.9% 250 ML IV SCH ×2 (14:11→21:51)
[2019-03-03] MEDS: DEXAMETHASONE 4 MG/ML, 1ML IVPush SCH ×2 (15:26→23:42)
[2019-03-03 17:44] LABS: ANION GAP 9 mmol/L (5-15); CALCIUM 8.6 mg/dL (8.5-10.1); CHLORIDE 117 mmol/L (98-107); CREATININE 0.39 mg/dL (0.55-1.02)
[2019-03-03] MEDS: FENTANYL PF 2,500 MCG in SODIUM CHLORIDE 0.9% 200 ML IV PRN (20:38)
[2019-03-04] MEDS: METRONIDAZOLE PMX 500MG/100ML 100 ML IV SCH ×5 (00:24→23:58)
[2019-03-04] MEDS: ALBUTEROL/IPRATROPIUM 2.5MG/0.5MG, 3 ML INLINE SCH ×6 (01:59→21:28)
[2019-03-04] MEDS: INSULIN LISPRO 100 UNITS/ML, PEN SQ-INSULIN SCH ×4 (03:06→20:40)
[2019-03-04 05:25] LABS: MEAN CORPUSCULAR HGB CONC 32.4 g/dL (32.4-35.8); MEAN CORPUSCULAR VOLUME 98.9 fL (80-100); MEAN PLATELET VOLUME 8.9 fL (7.4-10.4); PLATELET COUNT 378 x10^3/uL (130-400); RED CELL DISTRIBUTION WIDTH 18.4 % (9.6-15.2)
[2019-03-04] MEDS: VANCOMYCIN 1,250 MG in SODIUM CHLORIDE 0.9% 250 ML IV SCH ×4 (05:46→22:01)
[2019-03-04 05:54] LABS: BASOPHILS # (AUTO) 0.05 x10^3/uL (0-0.1); BASOPHILS % (AUTO) 0 % (0-1); EOSINOPHILS # (AUTO) 0.09 x10^3/uL (0-0.4); EOSINOPHILS % (AUTO) 1 % (1-7); LYMPHOCYTES # (AUTO) 0.48 x10^3/uL (1-3.4); LYMPHOCYTES % (AUTO) 3 % (22-44); MD SCAN; MONOCYTES # (AUTO) 0.47 x10^3/uL (0.2-0.8); MONOCYTES % (AUTO) 3 % (2-9); NEUTROPHILS # (AUTO) 15.92 x10^3/uL (1.8-6.8); NEUTROPHILS % (AUTO) 94 % (42-75)
[2019-03-04 06:20] LABS: ALANINE AMINOTRANSFERASE 10 U/L (12-78); ALBUMIN 1.8 g/dL (3.4-5.0); ANION GAP 10 mmol/L (5-15); CALCIUM 8.3 mg/dL (8.5-10.1); CHLORIDE 117 mmol/L (98-107); CREATININE 0.39 mg/dL (0.55-1.02)
[2019-03-04] MEDS: BUDESONIDE 0.5 MG/2 ML INHA NPPB SCH ×2 (06:20→18:30)
[2019-03-04 06:22] LABS: ALKALINE PHOSPHATASE 60 U/L (45-117); BILIRUBIN,TOTAL 0.2 mg/dL (0.2-1.0); TOTAL PROTEIN 6.2 g/dL (6.4-8.2)
[2019-03-04] MEDS: DEXAMETHASONE 4 MG/ML, 1ML IVPush SCH ×4 (09:21→21:45)
[2019-03-04] MEDS: SODIUM CHLORIDE FLUSH 10ML SYR IVF SCH ×2 (09:21→20:41)
[2019-03-04] MEDS: PANTOPRAZOLE 40 MG IV IVPush SCH ×2 (09:21→20:41)
--- NOTE | 2019-03-04 10:56 | NUR ---
TF GOAL: w/ propofol: PROMOTE @ 45ml/hr off propofol: PROMOTE @ 55ml/hr
[2019-03-04] MEDS: CEFTRIAXONE PMX 2GM/50ML 50 ML IVPB SCH ×2 (11:29→23:09)
[2019-03-04] MEDS: LEVETIRACETAM 500 MG in SODIUM CHLORIDE 0.9% 100 ML IV SCH ×2 (11:35→23:58)
[2019-03-04 14:50] LABS: VANCOMYCIN,TROUGH 22.1 mcg/mL (5.0-10.0)
[2019-03-04] MEDS ORDERED: VANCOMYCIN 1,250 MG in SODIUM CHLORIDE 0.9% 250 ML IV SCH (15:48)
[2019-03-04] MEDS: POTASSIUM CHLORIDE 10% 40 MEQ/30 ML UDC PO SCH (20:42)
[2019-03-05] MEDS: ALBUTEROL/IPRATROPIUM 2.5MG/0.5MG, 3 ML INLINE SCH ×6 (02:09→22:26)
[2019-03-05] MEDS: INSULIN LISPRO 100 UNITS/ML, PEN SQ-INSULIN SCH ×4 (03:36→20:57)
[2019-03-05] MEDS: METRONIDAZOLE PMX 500MG/100ML 100 ML IV SCH ×2 (05:03→12:26)
[2019-03-05 05:46] LABS: BASOPHILS # (AUTO) 0.03 x10^3/uL (0-0.1); BASOPHILS % (AUTO) 0 % (0-1); EOSINOPHILS % (AUTO) 0 % (1-7); LYMPHOCYTES # (AUTO) 0.55 x10^3/uL (1-3.4); LYMPHOCYTES % (AUTO) 5 % (22-44); MD NO; MEAN CORPUSCULAR HEMOGLOBIN 32.3 pg (27.0-34.8); MEAN CORPUSCULAR HGB CONC 32.8 g/dL (32.4-35.8); MEAN CORPUSCULAR VOLUME 98.5 fL (80-100); MEAN PLATELET VOLUME 9.1 fL (7.4-10.4); MONOCYTES # (AUTO) 0.38 x10^3/uL (0.2-0.8); MONOCYTES % (AUTO) 3 % (2-9); NEUTROPHILS # (AUTO) 10.42 x10^3/uL (1.8-6.8); NEUTROPHILS % (AUTO) 92 % (42-75); PLATELET COUNT 387 x10^3/uL (130-400); RED CELL DISTRIBUTION WIDTH 18.2 % (9.6-15.2)
[2019-03-05] MEDS: VANCOMYCIN 1,250 MG in SODIUM CHLORIDE 0.9% 250 ML IV SCH ×2 (06:05→13:56)
[2019-03-05] MEDS: BUDESONIDE 0.5 MG/2 ML INHA NPPB SCH ×2 (06:10→21:00)
[2019-03-05 07:03] LABS: CALCIUM 8.1 mg/dL (8.5-10.1); CHLORIDE 115 mmol/L (98-107)
[2019-03-05 07:04] LABS: ANION GAP 11 mmol/L (5-15); CREATININE 0.41 mg/dL (0.55-1.02)
[2019-03-05] MEDS: PANTOPRAZOLE 40 MG IV IVPush SCH ×2 (08:53→20:56)
[2019-03-05] MEDS: DEXAMETHASONE 4 MG/ML, 1ML IVPush SCH ×3 (08:53→20:57)
[2019-03-05] MEDS: SODIUM CHLORIDE FLUSH 10ML SYR IVF SCH ×2 (08:53→20:57)
[2019-03-05] MEDS: POTASSIUM CHLORIDE 10% 40 MEQ/30 ML UDC PO SCH (08:54)
[2019-03-05] MEDS: NEUTRA PHOS K 250 MG TABLET PO SCH ×3 (10:42→20:56)
[2019-03-05] MEDS: POTASSIUM CHLORIDE 20 MEQ TAB.ER.PRT PO SCH ×2 (10:42→16:24)
[2019-03-05] MEDS: CEFTRIAXONE PMX 2GM/50ML 50 ML IVPB SCH ×2 (11:14→22:46)
[2019-03-05] MEDS ORDERED: MIDAZOLAM 1 MG/ML, 2ML IVPush ONE (11:30)
[2019-03-05] MEDS: LEVETIRACETAM 500 MG in SODIUM CHLORIDE 0.9% 100 ML IV SCH ×2 (12:01→23:33)
[2019-03-05] MEDS ORDERED: BENZOCAINE AEROSOL SPRAY 20%, 60ML TP PRN (14:30)
[2019-03-05] MEDS ORDERED: SODIUM CHLORIDE 0.9% 1,000 ML IV SCH (14:30)
[2019-03-05] MEDS: FENTANYL PF 2,500 MCG in SODIUM CHLORIDE 0.9% 200 ML IV PRN (16:56)
[2019-03-06] MEDS: ALBUTEROL/IPRATROPIUM 2.5MG/0.5MG, 3 ML INLINE SCH ×6 (02:16→22:09)
[2019-03-06] MEDS: INSULIN LISPRO 100 UNITS/ML, PEN SQ-INSULIN SCH ×4 (03:10→20:52)
[2019-03-06 03:38] LABS: BASOPHILS # (AUTO) 0.07 x10^3/uL (0-0.1); BASOPHILS % (AUTO) 1 % (0-1); EOSINOPHILS % (AUTO) 0 % (1-7); LYMPHOCYTES # (AUTO) 0.44 x10^3/uL (1-3.4); LYMPHOCYTES % (AUTO) 4 % (22-44); MD NO; MEAN CORPUSCULAR HEMOGLOBIN 31.8 pg (27.0-34.8); MEAN CORPUSCULAR HGB CONC 32.6 g/dL (32.4-35.8); MEAN CORPUSCULAR VOLUME 97.7 fL (80-100); MEAN PLATELET VOLUME 8.9 fL (7.4-10.4); MONOCYTES # (AUTO) 0.45 x10^3/uL (0.2-0.8); MONOCYTES % (AUTO) 4 % (2-9); NEUTROPHILS # (AUTO) 10.91 x10^3/uL (1.8-6.8); NEUTROPHILS % (AUTO) 92 % (42-75); PLATELET COUNT 356 x10^3/uL (130-400); RED BLOOD COUNT 3.68 x10^6/uL (3.82-5.3); RED CELL DISTRIBUTION WIDTH 18.6 % (9.6-15.2)
[2019-03-06 03:48] LABS: ANION GAP 6 mmol/L (5-15); CALCIUM 8.2 mg/dL (8.5-10.1); CHLORIDE 116 mmol/L (98-107); CREATININE 0.47 mg/dL (0.55-1.02)
[2019-03-06] MEDS: BUDESONIDE 0.5 MG/2 ML INHA NPPB SCH ×2 (06:35→22:09)
[2019-03-06] MEDS: PANTOPRAZOLE 40 MG IV IVPush SCH ×2 (09:46→20:36)
[2019-03-06] MEDS: DEXAMETHASONE 4 MG/ML, 1ML IVPush SCH ×3 (09:47→20:36)
[2019-03-06] MEDS: NEUTRA PHOS K 250 MG TABLET PO SCH ×3 (09:47→20:36)
[2019-03-06] MEDS: POTASSIUM CHLORIDE 20 MEQ TAB.ER.PRT PO SCH ×3 (09:48→20:36)
[2019-03-06] MEDS: AMLODIPINE 5 MG TABLET PO SCH ×2 (09:56→20:36)
[2019-03-06] MEDS: SODIUM CHLORIDE FLUSH 10ML SYR IVF SCH ×2 (09:56→20:44)
[2019-03-06] MEDS ORDERED: MIDAZOLAM 1 MG/ML, 5ML ONE (11:40)
[2019-03-06] MEDS: LEVETIRACETAM 500 MG in SODIUM CHLORIDE 0.9% 100 ML IV SCH ×2 (11:45→23:11)
[2019-03-06] MEDS: CEFTRIAXONE PMX 2GM/50ML 50 ML IVPB SCH ×2 (11:45→22:23)
[2019-03-06] MEDS: LABETALOL 5MG/ML, 20ML IVPush PRN (22:23)
[2019-03-06] MEDS: hydrALAzine 20 MG/ML, 1ML IV PRN (23:40)
[2019-03-07] MEDS: FENTANYL PF 2,500 MCG in SODIUM CHLORIDE 0.9% 200 ML IV PRN (00:41)
[2019-03-07] MEDS: ALBUTEROL/IPRATROPIUM 2.5MG/0.5MG, 3 ML INLINE SCH ×5 (02:16→19:00)
[2019-03-07] MEDS: LABETALOL 5MG/ML, 20ML IVPush PRN (03:19)
[2019-03-07] MEDS: INSULIN LISPRO 100 UNITS/ML, PEN SQ-INSULIN SCH ×4 (03:25→20:35)
[2019-03-07] MEDS: hydrALAzine 20 MG/ML, 1ML IV PRN ×2 (04:10→22:49)
[2019-03-07 05:49] LABS: HCT (SEDRATE) 37.1 % (34.6-47.8)
[2019-03-07 06:00] LABS: ALBUMIN 2.1 g/dL (3.4-5.0); ANION GAP 7 mmol/L (5-15); CALCIUM 8.7 mg/dL (8.5-10.1); CHLORIDE 114 mmol/L (98-107); CREATININE 0.39 mg/dL (0.55-1.02)
[2019-03-07 06:03] LABS: C-REACTIVE PROTEIN, QUANT 1.6 mg/dL (0.02-0.49)
[2019-03-07] MEDS ORDERED: ENALAPRILAT 1.25 MG/ML, 1ML ONE (06:04)
[2019-03-07 06:38] LABS: MEAN CORPUSCULAR HGB CONC 32.6 g/dL (32.4-35.8); MEAN CORPUSCULAR VOLUME 98.1 fL (80-100); MEAN PLATELET VOLUME 9.6 fL (7.4-10.4); PLATELET COUNT 381 x10^3/uL (130-400); RED BLOOD COUNT 3.86 x10^6/uL (3.82-5.3); RED CELL DISTRIBUTION WIDTH 18.2 % (9.6-15.2)
[2019-03-07] MEDS: BUDESONIDE 0.5 MG/2 ML INHA NPPB SCH ×2 (06:40→19:06)
[2019-03-07 07:23] LABS: BASOPHILS # (AUTO) 0.01 x10^3/uL (0-0.1); BASOPHILS % (AUTO) 0 % (0-1); EOSINOPHILS # (AUTO) 0.34 x10^3/uL (0-0.4); EOSINOPHILS % (AUTO) 2 % (1-7); LYMPHOCYTES # (AUTO) 0.78 x10^3/uL (1-3.4); LYMPHOCYTES % (AUTO) 5 % (22-44); MD SCAN; MONOCYTES # (AUTO) 0.64 x10^3/uL (0.2-0.8); MONOCYTES % (AUTO) 4 % (2-9); NEUTROPHILS # (AUTO) 14.77 x10^3/uL (1.8-6.8); NEUTROPHILS % (AUTO) 89 % (42-75)
[2019-03-07] MEDS: PROPOFOL 100 ML IV PRN ×2 (08:30→15:16)
[2019-03-07] MEDS: LISINOPRIL 20 MG TABLET PO SCH ×2 (09:00→20:36)
[2019-03-07] MEDS ORDERED: POTASSIUM CHLORIDE 20 MEQ TAB.ER.PRT PO SCH (09:00)
[2019-03-07] MEDS: METOPROLOL TARTRATE 25 MG TABLET PO SCH ×3 (09:00→18:28)
[2019-03-07] MEDS ORDERED: POTASSIUM CHLORIDE 20 MEQ PACKET PO SCH (09:32)
[2019-03-07] MEDS: PANTOPRAZOLE 40 MG IV IVPush SCH ×2 (09:41→20:36)
[2019-03-07] MEDS: AMLODIPINE 5 MG TABLET PO SCH ×2 (09:42→20:36)
[2019-03-07] MEDS: DEXAMETHASONE 4 MG/ML, 1ML IVPush SCH ×2 (09:42→20:36)
[2019-03-07] MEDS: SODIUM CHLORIDE FLUSH 10ML SYR IVF SCH ×2 (09:43→20:36)
[2019-03-07] MEDS: LEVETIRACETAM 500 MG in SODIUM CHLORIDE 0.9% 100 ML IV SCH (11:19)
[2019-03-07] MEDS: CEFTRIAXONE PMX 2GM/50ML 50 ML IVPB SCH ×2 (11:20→23:03)
[2019-03-07] MEDS: POTASSIUM CHLORIDE 20 MEQ PACKET PO SCH (18:29)
[2019-03-08] MEDS: LEVETIRACETAM 500 MG in SODIUM CHLORIDE 0.9% 100 ML IV SCH ×3 (00:07→23:32)
[2019-03-08] MEDS: PROPOFOL 100 ML IV PRN (00:29)
[2019-03-08] MEDS: POTASSIUM CHLORIDE 20 MEQ PACKET PO SCH (01:36)
[2019-03-08] MEDS: ALBUTEROL/IPRATROPIUM 2.5MG/0.5MG, 3 ML INLINE SCH ×7 (02:36→22:25)
[2019-03-08] MEDS: INSULIN LISPRO 100 UNITS/ML, PEN SQ-INSULIN SCH ×4 (03:00→21:14)
[2019-03-08 04:45] LABS: MEAN CORPUSCULAR HEMOGLOBIN 32.4 pg (27.0-34.8); MEAN CORPUSCULAR VOLUME 98.2 fL (80-100); PLATELET COUNT 373 x10^3/uL (130-400); RED BLOOD COUNT 3.82 x10^6/uL (3.82-5.3); RED CELL DISTRIBUTION WIDTH 18.8 % (9.6-15.2)
[2019-03-08 04:58] LABS: ANION GAP 6 mmol/L (5-15); CALCIUM 8.6 mg/dL (8.5-10.1); CHLORIDE 110 mmol/L (98-107); CREATININE 0.44 mg/dL (0.55-1.02)
[2019-03-08 05:01] LABS: BASOPHILS % (AUTO) 1 % (0-1); EOSINOPHILS # (AUTO) 0.01 x10^3/uL (0-0.4); EOSINOPHILS % (AUTO) 0 % (1-7); LYMPHOCYTES # (AUTO) 1.56 x10^3/uL (1-3.4); LYMPHOCYTES % (AUTO) 9 % (22-44); MD SCAN; MONOCYTES # (AUTO) 0.57 x10^3/uL (0.2-0.8); MONOCYTES % (AUTO) 3 % (2-9); NEUTROPHILS % (AUTO) 87 % (42-75)
[2019-03-08] MEDS: METOPROLOL TARTRATE 25 MG TABLET PO SCH ×2 (05:34→18:00)
[2019-03-08] MEDS: BUDESONIDE 0.5 MG/2 ML INHA NPPB SCH ×3 (06:23→18:19)
[2019-03-08] MEDS: PANTOPRAZOLE 40 MG IV IVPush SCH ×2 (08:54→21:18)
[2019-03-08] MEDS: DEXAMETHASONE 4 MG/ML, 1ML IVPush SCH ×2 (08:54→21:19)
[2019-03-08] MEDS: LISINOPRIL 20 MG TABLET PO SCH ×2 (08:54→21:18)
[2019-03-08] MEDS: AMLODIPINE 5 MG TABLET PO SCH ×2 (08:54→21:18)
[2019-03-08] MEDS: SODIUM CHLORIDE FLUSH 10ML SYR IVF SCH ×2 (08:56→21:14)
[2019-03-08] MEDS: CEFTRIAXONE PMX 2GM/50ML 50 ML IVPB SCH ×2 (11:38→23:31)
[2019-03-08] MEDS: MEROPENEM 1 GM in SODIUM CHLORIDE 0.9% 100 ML IV SCH ×2 (15:04→22:56)
[2019-03-08] MEDS ORDERED: ESOMEPRAZOLE 40 MG IV IVPush SCH (19:30)
[2019-03-08] MEDS: hydrALAzine 20 MG/ML, 1ML IV PRN (21:08)
[2019-03-08] MEDS: FENTANYL PF 2,500 MCG in SODIUM CHLORIDE 0.9% 200 ML IV PRN (22:18)
[2019-03-09] MEDS: ACETAMINOPHEN 650 MG/20.3 ML UDC PO PRN (01:44)
[2019-03-09] MEDS: INSULIN LISPRO 100 UNITS/ML, PEN SQ-INSULIN SCH ×4 (02:30→22:32)
[2019-03-09] MEDS: ALBUTEROL/IPRATROPIUM 2.5MG/0.5MG, 3 ML INLINE SCH ×6 (03:00→22:09)
[2019-03-09 04:16] LABS: MEAN CORPUSCULAR HEMOGLOBIN 32.1 pg (27.0-34.8); MEAN CORPUSCULAR VOLUME 97.2 fL (80-100); MEAN PLATELET VOLUME 9.4 fL (7.4-10.4); PLATELET COUNT 358 x10^3/uL (130-400); RED BLOOD COUNT 3.75 x10^6/uL (3.82-5.3); RED CELL DISTRIBUTION WIDTH 17.9 % (9.6-15.2)
[2019-03-09 04:27] LABS: ANION GAP 9 mmol/L (5-15); CALCIUM 8.4 mg/dL (8.5-10.1); CHLORIDE 102 mmol/L (98-107); CREATININE 0.39 mg/dL (0.55-1.02)
[2019-03-09 04:43] LABS: MD YES
[2019-03-09 04:45] LABS: LYMPHS% (MANUAL) 7 % (22-44); METAMYELOCYTES# (MANUAL) 0.17 x10^3/uL (0-0); METAMYELOCYTES% (MANUAL) 1 % (0-1); MONOS#(MANUAL) 0.52 x10^3/uL (0.3-2.7); MONOS% (MANUAL) 3 % (2-9); MYELOCYTES# (MANUAL) 0.17 x10^3/uL (0-0); MYELOCYTES% (MANUAL) 1 % (0-0); SEG#(MANUAL) 15.14 x10^3/uL (1.8-6.8); SEGS% (MANUAL) 88 % (42-75)
[2019-03-09 04:46] LABS: <PLATELET ESTIMATE> ADEQUATE; <PLT MORPHOLOGY> NORMAL PLT MORPH; ANISOCYTOSIS 1+
[2019-03-09] MEDS: METOPROLOL TARTRATE 25 MG TABLET PO SCH ×2 (05:32→18:00)
[2019-03-09] MEDS ORDERED: MAGNESIUM SULFATE PMX 2GM/50ML 50 ML IV ONE (07:00)
[2019-03-09] MEDS: MEROPENEM 1 GM in SODIUM CHLORIDE 0.9% 100 ML IV SCH ×3 (07:07→23:22)
[2019-03-09] MEDS: AMLODIPINE 5 MG TABLET PO SCH ×2 (08:09→22:32)
[2019-03-09] MEDS: LISINOPRIL 20 MG TABLET PO SCH ×2 (08:09→22:32)
[2019-03-09] MEDS: DEXAMETHASONE 4 MG/ML, 1ML IVPush SCH ×2 (08:09→22:32)
[2019-03-09] MEDS: PANTOPRAZOLE 40 MG IV IVPush SCH ×2 (08:10→22:32)
[2019-03-09] MEDS: POTASSIUM CHLORIDE 20 MEQ TAB.ER.PRT PO SCH (08:10)
[2019-03-09] MEDS: SODIUM CHLORIDE FLUSH 10ML SYR IVF SCH ×2 (08:10→22:33)
[2019-03-09 10:26] LABS: ANION GAP 8 mmol/L (5-15); CALCIUM 8.3 mg/dL (8.5-10.1); CHLORIDE 101 mmol/L (98-107); CREATININE 0.37 mg/dL (0.55-1.02)
[2019-03-09] MEDS: LEVETIRACETAM 500 MG in SODIUM CHLORIDE 0.9% 100 ML IV SCH ×2 (11:04→23:56)
[2019-03-09] MEDS: BUDESONIDE 0.5 MG/2 ML INHA NPPB SCH (18:35)
[2019-03-10] MEDS: ALBUTEROL/IPRATROPIUM 2.5MG/0.5MG, 3 ML INLINE SCH ×6 (03:00→23:00)
[2019-03-10 03:41] LABS: MEAN CORPUSCULAR HEMOGLOBIN 32.4 pg (27.0-34.8); MEAN CORPUSCULAR VOLUME 98.1 fL (80-100); MEAN PLATELET VOLUME 9.1 fL (7.4-10.4); PLATELET COUNT 387 x10^3/uL (130-400); RED BLOOD COUNT 3.67 x10^6/uL (3.82-5.3); RED CELL DISTRIBUTION WIDTH 17.7 % (9.6-15.2)
[2019-03-10 04:15] LABS: BASOPHILS # (AUTO) 0.02 x10^3/uL (0-0.1); BASOPHILS % (AUTO) 0 % (0-1); EOSINOPHILS # (AUTO) 0.03 x10^3/uL (0-0.4); EOSINOPHILS % (AUTO) 0 % (1-7); LYMPHOCYTES # (AUTO) 0.56 x10^3/uL (1-3.4); LYMPHOCYTES % (AUTO) 3 % (22-44); MD SCAN; MONOCYTES # (AUTO) 0.35 x10^3/uL (0.2-0.8); MONOCYTES % (AUTO) 2 % (2-9); NEUTROPHILS # (AUTO) 16.11 x10^3/uL (1.8-6.8); NEUTROPHILS % (AUTO) 94 % (42-75)
[2019-03-10 04:59] LABS: ANION GAP 8 mmol/L (5-15); CALCIUM 8.5 mg/dL (8.5-10.1); CHLORIDE 98 mmol/L (98-107); CREATININE 0.43 mg/dL (0.55-1.02)
[2019-03-10] MEDS: INSULIN LISPRO 100 UNITS/ML, PEN SQ-INSULIN SCH ×2 (05:48→09:00)
[2019-03-10] MEDS: METOPROLOL TARTRATE 25 MG TABLET PO SCH ×2 (06:42→18:41)
[2019-03-10] MEDS: MEROPENEM 1 GM in SODIUM CHLORIDE 0.9% 100 ML IV SCH ×3 (06:43→22:40)
[2019-03-10] MEDS: BUDESONIDE 0.5 MG/2 ML INHA NPPB SCH ×2 (07:01→21:00)
[2019-03-10] MEDS: FENTANYL PF 2,500 MCG in SODIUM CHLORIDE 0.9% 200 ML IV PRN (08:34)
[2019-03-10] MEDS: POTASSIUM CHLORIDE 20 MEQ TAB.ER.PRT PO SCH (09:05)
[2019-03-10] MEDS: SODIUM CHLORIDE FLUSH 10ML SYR IVF SCH ×2 (09:05→20:10)
[2019-03-10] MEDS: DEXAMETHASONE 4 MG/ML, 1ML IVPush SCH (09:05)
[2019-03-10] MEDS: AMLODIPINE 5 MG TABLET PO SCH ×2 (09:05→20:09)
[2019-03-10] MEDS: PANTOPRAZOLE 40 MG IV IVPush SCH ×2 (09:05→20:10)
[2019-03-10] MEDS: LISINOPRIL 20 MG TABLET PO SCH ×2 (09:05→20:10)
[2019-03-10] MEDS: LEVETIRACETAM 500 MG in SODIUM CHLORIDE 0.9% 100 ML IV SCH ×2 (12:23→23:23)
[2019-03-10] MEDS ORDERED: ENALAPRILAT 1.25 MG/ML, 1ML IV PRN (14:00)
[2019-03-10] MEDS: SODIUM CHLORIDE 1 GM TABLET PO SCH ×2 (16:25→20:09)
[2019-03-11] MEDS: ALBUTEROL/IPRATROPIUM 2.5MG/0.5MG, 3 ML INLINE SCH ×6 (02:43→23:00)
[2019-03-11 04:37] LABS: BASOPHILS # (AUTO) 0.01 x10^3/uL (0-0.1); BASOPHILS % (AUTO) 0 % (0-1); EOSINOPHILS # (AUTO) 0.42 x10^3/uL (0-0.4); EOSINOPHILS % (AUTO) 3 % (1-7); LYMPHOCYTES # (AUTO) 1.11 x10^3/uL (1-3.4); LYMPHOCYTES % (AUTO) 9 % (22-44); MD NO; MEAN CORPUSCULAR HEMOGLOBIN 32.3 pg (27.0-34.8); MEAN CORPUSCULAR VOLUME 97.7 fL (80-100); MONOCYTES # (AUTO) 0.66 x10^3/uL (0.2-0.8); MONOCYTES % (AUTO) 5 % (2-9); NEUTROPHILS # (AUTO) 10.62 x10^3/uL (1.8-6.8); NEUTROPHILS % (AUTO) 83 % (42-75); PLATELET COUNT 392 x10^3/uL (130-400); RED BLOOD COUNT 3.42 x10^6/uL (3.82-5.3); RED CELL DISTRIBUTION WIDTH 17.5 % (9.6-15.2)
[2019-03-11 04:46] LABS: ANION GAP 7 mmol/L (5-15); CALCIUM 8.7 mg/dL (8.5-10.1); CHLORIDE 98 mmol/L (98-107); CREATININE 0.29 mg/dL (0.55-1.02)
[2019-03-11] MEDS: METOPROLOL TARTRATE 25 MG TABLET PO SCH ×2 (06:06→18:43)
[2019-03-11] MEDS: FENTANYL PF 2,500 MCG in SODIUM CHLORIDE 0.9% 200 ML IV PRN (06:06)
[2019-03-11] MEDS: MEROPENEM 1 GM in SODIUM CHLORIDE 0.9% 100 ML IV SCH ×2 (06:36→15:52)
[2019-03-11] MEDS: BUDESONIDE 0.5 MG/2 ML INHA NPPB SCH ×2 (06:50→19:40)
[2019-03-11] MEDS: PANTOPRAZOLE 40 MG IV IVPush SCH ×2 (09:43→20:30)
[2019-03-11] MEDS: POTASSIUM CHLORIDE 20 MEQ TAB.ER.PRT PO SCH (09:44)
[2019-03-11] MEDS: LISINOPRIL 20 MG TABLET PO SCH ×2 (09:44→20:30)
[2019-03-11] MEDS: AMLODIPINE 5 MG TABLET PO SCH ×2 (09:44→20:30)
[2019-03-11] MEDS: LEVETIRACETAM 500 MG in SODIUM CHLORIDE 0.9% 100 ML IV SCH ×2 (11:25→23:18)
[2019-03-11] MEDS: SODIUM CHLORIDE FLUSH 10ML SYR IVF SCH ×2 (11:26→20:30)
[2019-03-11] MEDS: ACETAMINOPHEN 650 MG/20.3 ML UDC PO PRN (15:52)
[2019-03-11] MEDS: SODIUM CHLORIDE 1 GM TABLET PO SCH ×2 (15:52→20:30)
[2019-03-12] MEDS: MEROPENEM 1 GM in SODIUM CHLORIDE 0.9% 100 ML IV SCH ×3 (00:35→16:14)
[2019-03-12] MEDS: ALBUTEROL/IPRATROPIUM 2.5MG/0.5MG, 3 ML INLINE SCH ×6 (02:34→22:08)
[2019-03-12 04:14] LABS: MEAN CORPUSCULAR HEMOGLOBIN 32.3 pg (27.0-34.8); MEAN CORPUSCULAR HGB CONC 32.7 g/dL (32.4-35.8); MEAN CORPUSCULAR VOLUME 98.7 fL (80-100); PLATELET COUNT 408 x10^3/uL (130-400); RED BLOOD COUNT 3.47 x10^6/uL (3.82-5.3); RED CELL DISTRIBUTION WIDTH 17.2 % (9.6-15.2)
[2019-03-12 04:48] LABS: MD YES
[2019-03-12 04:54] LABS: EOS#(MANUAL) 0.15 x10^3/uL (0.0-0.4); EOS% (MANUAL) 1 % (1-7); LYMPH#(MANUAL) 1.18 x10^3/uL (1-3.4); LYMPHS% (MANUAL) 8 % (22-44); MONOS#(MANUAL) 0.74 x10^3/uL (0.3-2.7); MONOS% (MANUAL) 5 % (2-9); MYELOCYTES# (MANUAL) 0.15 x10^3/uL (0-0); MYELOCYTES% (MANUAL) 1 % (0-0); SEG#(MANUAL) 12.58 x10^3/uL (1.8-6.8); SEGS% (MANUAL) 85 % (42-75)
[2019-03-12 04:55] LABS: <PLATELET ESTIMATE> INCREASED; <PLT MORPHOLOGY> NORMAL PLT MORPH; ANISOCYTOSIS 1+
[2019-03-12] MEDS: METOPROLOL TARTRATE 25 MG TABLET PO SCH ×2 (05:35→17:15)
[2019-03-12] MEDS: FENTANYL PF 2,500 MCG in SODIUM CHLORIDE 0.9% 200 ML IV PRN (06:33)
[2019-03-12 08:02] LABS: ANION GAP 8 mmol/L (5-15); CALCIUM 8.7 mg/dL (8.5-10.1); CHLORIDE 100 mmol/L (98-107); CREATININE 0.33 mg/dL (0.55-1.02)
[2019-03-12] MEDS: PANTOPRAZOLE 40 MG IV IVPush SCH ×2 (08:59→21:21)
[2019-03-12] MEDS: AMLODIPINE 5 MG TABLET PO SCH ×2 (08:59→23:42)
[2019-03-12] MEDS: LISINOPRIL 20 MG TABLET PO SCH ×2 (08:59→23:42)
[2019-03-12] MEDS: SODIUM CHLORIDE 1 GM TABLET PO SCH ×3 (08:59→21:22)
[2019-03-12] MEDS: BUDESONIDE 0.5 MG/2 ML INHA NPPB SCH ×2 (09:00→18:39)
[2019-03-12] MEDS: SODIUM CHLORIDE FLUSH 10ML SYR IVF SCH ×2 (09:01→21:21)
[2019-03-12] MEDS: LEVETIRACETAM 500 MG in SODIUM CHLORIDE 0.9% 100 ML IV SCH ×2 (11:36→23:42)
[2019-03-12] MEDS ORDERED: LORazepam 2 MG/ML, 1ML IVPush PRN (14:00)
[2019-03-13] MEDS: MEROPENEM 1 GM in SODIUM CHLORIDE 0.9% 100 ML IV SCH ×3 (00:21→19:54)
[2019-03-13] MEDS: ALBUTEROL/IPRATROPIUM 2.5MG/0.5MG, 3 ML INLINE SCH ×6 (02:27→22:32)
[2019-03-13 04:26] LABS: BASOPHILS # (AUTO) 0.02 x10^3/uL (0-0.1); BASOPHILS % (AUTO) 0 % (0-1); EOSINOPHILS # (AUTO) 0.21 x10^3/uL (0-0.4); EOSINOPHILS % (AUTO) 2 % (1-7); LYMPHOCYTES # (AUTO) 0.85 x10^3/uL (1-3.4); LYMPHOCYTES % (AUTO) 9 % (22-44); MD NO; MEAN CORPUSCULAR HEMOGLOBIN 32.7 pg (27.0-34.8); MEAN CORPUSCULAR HGB CONC 33.3 g/dL (32.4-35.8); MEAN CORPUSCULAR VOLUME 98.2 fL (80-100); MEAN PLATELET VOLUME 8.7 fL (7.4-10.4); MONOCYTES # (AUTO) 0.63 x10^3/uL (0.2-0.8); MONOCYTES % (AUTO) 6 % (2-9); NEUTROPHILS # (AUTO) 8.21 x10^3/uL (1.8-6.8); NEUTROPHILS % (AUTO) 83 % (42-75); PLATELET COUNT 418 x10^3/uL (130-400); RED BLOOD COUNT 3.11 x10^6/uL (3.82-5.3)
[2019-03-13 04:35] LABS: ANION GAP 5 mmol/L (5-15); CALCIUM 8.6 mg/dL (8.5-10.1); CHLORIDE 101 mmol/L (98-107); CREATININE 0.26 mg/dL (0.55-1.02)
[2019-03-13] MEDS: METOPROLOL TARTRATE 25 MG TABLET PO SCH ×2 (05:32→18:53)
[2019-03-13] MEDS: BUDESONIDE 0.5 MG/2 ML INHA NPPB SCH ×2 (07:16→21:00)
[2019-03-13] MEDS: SODIUM CHLORIDE 1 GM TABLET PO SCH ×3 (09:13→21:01)
[2019-03-13] MEDS: LISINOPRIL 20 MG TABLET PO SCH ×2 (09:13→21:01)
[2019-03-13] MEDS: AMLODIPINE 5 MG TABLET PO SCH ×2 (09:13→21:00)
[2019-03-13] MEDS: SODIUM CHLORIDE FLUSH 10ML SYR IVF SCH ×2 (09:13→21:00)
[2019-03-13] MEDS: PANTOPRAZOLE 40 MG IV IVPush SCH ×2 (09:13→21:00)
[2019-03-13] MEDS: LEVETIRACETAM 500 MG in SODIUM CHLORIDE 0.9% 100 ML IV SCH ×2 (12:09→23:36)
[2019-03-13] MEDS: ACETAMINOPHEN 650 MG/20.3 ML UDC PO PRN (18:53)
[2019-03-13] MEDS: FENTANYL PF 2,500 MCG in SODIUM CHLORIDE 0.9% 200 ML IV PRN (22:36)
[2019-03-14] MEDS: ACETAMINOPHEN 650 MG/20.3 ML UDC PO PRN (01:19)
[2019-03-14] MEDS: ALBUTEROL/IPRATROPIUM 2.5MG/0.5MG, 3 ML INLINE SCH ×6 (02:29→22:26)
[2019-03-14 04:57] LABS: BASOPHILS # (AUTO) 0.02 x10^3/uL (0-0.1); BASOPHILS % (AUTO) 0 % (0-1); EOSINOPHILS # (AUTO) 0.08 x10^3/uL (0-0.4); EOSINOPHILS % (AUTO) 1 % (1-7); LYMPHOCYTES # (AUTO) 1.18 x10^3/uL (1-3.4); LYMPHOCYTES % (AUTO) 12 % (22-44); MD NO; MEAN CORPUSCULAR HEMOGLOBIN 31.9 pg (27.0-34.8); MEAN CORPUSCULAR HGB CONC 32.5 g/dL (32.4-35.8); MEAN CORPUSCULAR VOLUME 98.2 fL (80-100); MEAN PLATELET VOLUME 8.4 fL (7.4-10.4); MONOCYTES # (AUTO) 0.59 x10^3/uL (0.2-0.8); MONOCYTES % (AUTO) 6 % (2-9); NEUTROPHILS # (AUTO) 7.89 x10^3/uL (1.8-6.8); NEUTROPHILS % (AUTO) 81 % (42-75); PLATELET COUNT 437 x10^3/uL (130-400); RED BLOOD COUNT 2.95 x10^6/uL (3.82-5.3); RED CELL DISTRIBUTION WIDTH 17.2 % (9.6-15.2)
[2019-03-14 05:00] LABS: ANION GAP 6 mmol/L (5-15); CALCIUM 8.6 mg/dL (8.5-10.1); CHLORIDE 102 mmol/L (98-107); CREATININE 0.32 mg/dL (0.55-1.02)
[2019-03-14] MEDS: METOPROLOL TARTRATE 25 MG TABLET PO SCH ×2 (06:00→17:39)
[2019-03-14] MEDS ORDERED: MAGNESIUM SULFATE PMX 2GM/50ML 50 ML IV ONE (07:00)
[2019-03-14] MEDS: MEROPENEM 1 GM in SODIUM CHLORIDE 0.9% 100 ML IV SCH ×2 (08:13→19:42)
[2019-03-14] MEDS: SODIUM CHLORIDE FLUSH 10ML SYR IVF SCH ×2 (08:41→21:31)
[2019-03-14] MEDS: PANTOPRAZOLE 40 MG IV IVPush SCH ×2 (08:41→21:30)
[2019-03-14] MEDS: SODIUM CHLORIDE 1 GM TABLET PO SCH ×3 (08:42→21:30)
[2019-03-14] MEDS: LISINOPRIL 20 MG TABLET PO SCH ×2 (08:42→21:30)
[2019-03-14] MEDS: AMLODIPINE 5 MG TABLET PO SCH ×2 (08:42→21:30)
[2019-03-14] MEDS: BUDESONIDE 0.5 MG/2 ML INHA NPPB SCH ×2 (09:00→22:26)
[2019-03-14] MEDS: LEVETIRACETAM 500 MG in SODIUM CHLORIDE 0.9% 100 ML IV SCH ×2 (11:35→23:35)
[2019-03-15] MEDS: ALBUTEROL/IPRATROPIUM 2.5MG/0.5MG, 3 ML INLINE SCH ×2 (02:24→06:30)
[2019-03-15 04:15] LABS: BASOPHILS # (AUTO) 0.03 x10^3/uL (0-0.1); BASOPHILS % (AUTO) 1 % (0-1); EOSINOPHILS # (AUTO) 0.21 x10^3/uL (0-0.4); EOSINOPHILS % (AUTO) 3 % (1-7); LYMPHOCYTES # (AUTO) 1.19 x10^3/uL (1-3.4); LYMPHOCYTES % (AUTO) 17 % (22-44); MD NO; MEAN CORPUSCULAR HGB CONC 33.5 g/dL (32.4-35.8); MEAN CORPUSCULAR VOLUME 98.5 fL (80-100); MEAN PLATELET VOLUME 8.1 fL (7.4-10.4); MONOCYTES % (AUTO) 7 % (2-9); NEUTROPHILS # (AUTO) 5.23 x10^3/uL (1.8-6.8); NEUTROPHILS % (AUTO) 73 % (42-75); PLATELET COUNT 463 x10^3/uL (130-400); RED BLOOD COUNT 2.71 x10^6/uL (3.82-5.3); RED CELL DISTRIBUTION WIDTH 17.1 % (9.6-15.2)
[2019-03-15 04:26] LABS: ANION GAP 5 mmol/L (5-15); CALCIUM 8.2 mg/dL (8.5-10.1); CHLORIDE 105 mmol/L (98-107); CREATININE 0.26 mg/dL (0.55-1.02)
[2019-03-15] MEDS: METOPROLOL TARTRATE 25 MG TABLET PO SCH (06:03)
[2019-03-15] MEDS: BUDESONIDE 0.5 MG/2 ML INHA NPPB SCH (06:30)
[2019-03-15] MEDS: MEROPENEM 1 GM in SODIUM CHLORIDE 0.9% 100 ML IV SCH (08:46)
[2019-03-15] MEDS ORDERED: morphine SULFATE 10 MG/ML, 1ML ONE (09:46)
[2019-03-15] MEDS ORDERED: LORazepam 2 MG/ML, 1ML IV ONE (10:00)
[2019-03-15] MEDS ORDERED: morphine SULFATE 10 MG/ML, 1ML IV ONE (10:00)
[2019-03-15] MEDS: LORazepam 2 MG/ML, 1ML IV PRN ×5 (14:02→21:34)
[2019-03-15] MEDS: ATROPINE OPHTH SOLN 1%, 2ML PO PRN (18:41)
[2019-03-16] MEDS: LORazepam 2 MG/ML, 1ML IV PRN ×5 (00:27→14:22)
[2019-03-16] MEDS: ATROPINE OPHTH SOLN 1%, 2ML PO PRN (01:59)
== END 2019-03-16 16:21 | disposition expired | DRG 23 ==
LOC: ED 13:36 → EDIP 13:37 → ED 14:25 → 3NW 15:10 → 4WST 03-01 17:43 → CCU 03-01 21:11 → 3NW 03-15 13:25
PROVIDERS: ADMIT Hospitalist; ATTEND Hospitalist
PROC: 0BBK3ZX Excision of Right Lung, Percutaneous Approach, Diagnostic (ICD-10-PCS; 2019-02-25)
PROC: 0T9B70Z Drainage of Bladder with Drainage Device, Via Natural or Artificial Opening (ICD-10-PCS; 2019-03-01)
PROC: 5A1955Z Respiratory Ventilation, Greater than 96 Consecutive Hours (ICD-10-PCS; 2019-03-01)
PROC: 0BH17EZ Insertion of Endotracheal Airway into Trachea, Via Natural or Artificial Opening (ICD-10-PCS; 2019-03-01)
PROC: 009700Z Drainage of Cerebral Hemisphere with Drainage Device, Open Approach (ICD-10-PCS; principal; 2019-03-01 20:00)
PROC: 009630Z Drainage of Cerebral Ventricle with Drainage Device, Percutaneous Approach (ICD-10-PCS; 2019-03-02)
PROC: 02HV33Z Insertion of Infusion Device into Superior Vena Cava, Percutaneous Approach (ICD-10-PCS; 2019-03-02)
PROC: B548ZZA Ultrasonography of Superior Vena Cava, Guidance (ICD-10-PCS; 2019-03-02)
DX: G06.0 Intracranial abscess and granuloma (principal); G93.6 Cerebral edema; E43 Unspecified severe protein-calorie malnutrition; A41.9 Sepsis, unspecified organism; R65.21 Severe sepsis with septic shock; J96.00 Acute respiratory failure, unspecified whether with hypoxia or hypercapnia; G93.41 Metabolic encephalopathy; I33.0 Acute and subacute infective endocarditis; J15.211 Pneumonia due to Methicillin susceptible Staphylococcus aureus; E87.0 Hyperosmolality and hypernatremia; E87.1 Hypo-osmolality and hyponatremia; Z68.1 Body mass index [BMI] 19.9 or less, adult; G81.94 Hemiplegia, unspecified affecting left nondominant side; G91.9 Hydrocephalus, unspecified; I16.1 Hypertensive emergency; J95.851 Ventilator associated pneumonia; J98.11 Atelectasis; R41.4 Neurologic neglect syndrome; Z99.11 Dependence on respirator [ventilator] status; B95.5 Unspecified streptococcus as the cause of diseases classified elsewhere; D63.8 Anemia in other chronic diseases classified elsewhere; E83.39 Other disorders of phosphorus metabolism; E87.6 Hypokalemia; F12.90 Cannabis use, unspecified, uncomplicated; F17.210 Nicotine dependence, cigarettes, uncomplicated; F32.9 Major depressive disorder, single episode, unspecified; F41.9 Anxiety disorder, unspecified; G47.00 Insomnia, unspecified; G89.29 Other chronic pain; G93.89 Other specified disorders of brain; H26.9 Unspecified cataract; I10 Essential (primary) hypertension; B95.4 Other streptococcus as the cause of diseases classified elsewhere; J43.9 Emphysema, unspecified; K21.9 Gastro-esophageal reflux disease without esophagitis; M81.0 Age-related osteoporosis without current pathological fracture; Z51.5 Encounter for palliative care; Z53.9 Procedure and treatment not carried out, unspecified reason; Z96.643 Presence of artificial hip joint, bilateral; Z88.0 Allergy status to penicillin; Z80.0 Family history of malignant neoplasm of digestive organs
CPT/HCPCS: 32405; 36415; 36600; 70450; 70470; 70553; 71045; 71260; 74018; 74177; 77012; 80048; 80053; 80202; 81001; 82040; 82330; 82803; 82947; 82962; 83605; 83735; 83930; 84100; 84132; 84295; 84478; 84484; 85014; 85025; 85027; 85610; 85651; 85730; 86140; 87040; 87070; 87075; 87077; 87081; 87086; 87102; 87176; 87181; 87186; 87205; 88305; 88312; 88333; 88342; 93005; 93308; 93312; 93321; 93325; 94002; 94003; 94640; 96374; 96375; 99156; 99157; A9585; C1713; C1729; G0378; J0696; J0697; J1100; J1644; J1885; J1953; J2185; J2250; J2310; J2405; J2550; J2704; J3010; J3370; J3480; J7060; J7613; J7620; J7626; J7644; Q9967; 92523-GN; C9113; J0360; J1815; J1940; J2060; J2150; J2270; J2370; J3475; J7030; J7050; J7120